=== PATIENT | male | born 1955 | race Caucasian/White ===

== ENCOUNTER → 2018-04-26 | Day surgery (SDC) | payer OTHER ==
[~2018-04-26] VITALS: Ht 175.3 cm; Wt 99.8 kg
[~2018-04-26] MED LIST: ASPIR 8181 MG PO; EFFIENT10 MG PO; GLIMEPIRIDE2 MG PO; LIDOCAINE 1% W/EPINEPHRINE 20 ML VIAL ONE; LOSARTAN POTASS25 MG PO; METFORMIN HCL500 MG PO; METOPROLOL TART25 MG PO; OMEPRAZOLE40 MG PO; PRAVASTATIN SOD10 MG PO; PROBENECID500 MG PO; SPIRONOLACTONE25 MG PO; ZETIA10 MG PO
--- NOTE | 2018-04-26 14:40 | Operative Report ---
DATE OF PROCEDURE: April 26, 2018 INDICATIONS: Palpitations, history of atrial fibrillation. PROCEDURE PERFORMED: Insertable loop recorder. Left anterior chest wall was anesthetized using subcutaneous lidocaine. A Gemfire LINQ, serial number [id number] was inserted without complications. Skin approximated using Dermabond. Patient discharged home same day. Job#: [id number]
== END | disposition home or self-care (01) ==
LOC: CATH LAB 09:56
PROVIDERS: ATTEND Internal Medicine Interventional Cardiology
DX: R00.2 Palpitations (principal); I25.2 Old myocardial infarction; I50.20 Unspecified systolic (congestive) heart failure; E11.22 Type 2 diabetes mellitus with diabetic chronic kidney disease; N18.9 Chronic kidney disease, unspecified; Z79.82 Long term (current) use of aspirin; Z79.84 Long term (current) use of oral hypoglycemic drugs; Z68.32 Body mass index [BMI] 32.0-32.9, adult
CPT/HCPCS: 33282; C1764